=== PATIENT | male | born 1955 | race Caucasian/White ===

== ENCOUNTER 2019-02-11 06:01 | Outpatient (CLI) | payer BC ==
[~2019-02-11] VITALS: Ht 188 cm; Wt 147.9 kg
[2019-02-11] MEDS ORDERED: MULT-1104 PO (11:19)
[2019-02-11] MEDS ORDERED: ZOLP10TA PO (11:19)
[2019-02-11] MEDS ORDERED: RAMI10CA35 PO (11:19)
[2019-02-11] MEDS ORDERED: ASPI-586 PO (11:19)
[2019-02-11] MEDS ORDERED: OMEP20TA7 PO (11:19)
== END 2019-02-11 11:26 | disposition home or self-care (01) ==
LOC: PREOP 06:01
PROVIDERS: ATTEND Surgery
DX: Z01.818 Encounter for other preprocedural examination (principal)

== ENCOUNTER 2019-02-12 10:56 | Day surgery (SDC) | payer BC ==
[~2019-02-12] VITALS: Ht 188 cm; Wt 147.9 kg
[~2019-02-12 10:56] MED LIST: ASPI-586 PO; MULT-1104 PO; OMEP20TA7 PO; RAMI10CA35 PO; ZOLP10TA PO
[2019-02-12] MEDS ORDERED: NS IV 500 ML 500 ML ONE (10:58)
[2019-02-12] MEDS ORDERED: NS IV 500 ML 500 ML IV PRN (11:01)
--- OUTSIDE RECORDS SUMMARY | 2019-02-12 11:12 | XMS REPORT ---
Author Author Michael Cook Organization [facility] Address [address] [place], [place] [id number] Care Team Providers Care Chain Carrier Name Role Phone Michael Cook PCP Unavailable Allergies and Adverse Reactions Name Reaction Notes TETRACYCLINES Plan of Treatment Not available. Medications Active Name Start Date Estimated Completion Date SIG Comments omeprazole 20 mg oral capsule,delayed release(DR/EC) Take one capsule PO BID Aspir-81 81 mg oral tablet,delayed release (DR/EC) take 1 tablet (81 mg) by oral route once daily AndroGel 20.25 mg/1.25 gram (1.62 %) transdermal gel in metered-dose pump apply 20.25 mg by topical route once daily in the morning to 1 upper arm and shoulder fluoxetine 10 mg oral capsule take 1 capsule by oral route As needed zolpidem 10 mg oral tablet take 1 tablet by oral route As needed Problem List Description Status Onset Anxiety Active Fractured bone Active Hypercholesteremia Active Migraine Active Insomnia Active Weight Change Active Drug therapy Active 03/19/2015 Benign prostatic hypertrophy Active 03/19/2015 Nocturia more than twice per night Active 03/19/2015 Spermatocele Active 03/19/2015 Vital Signs Date Time BP-Sys(mm[Hg] BP-Tara(mm[Hg]) HR(bpm) RR(rpm) Temp WT HT HC BMI BSA BMI Percentile O2 Sat(%) 03/19/2015 9:01:00 AM 320 lbs 74 in 41.09 kg/m2 2.75 m2 Social History Name Description Comments Alcohol Use - Rare Caffeine Tobacco Former smoker Stopped smoking in 2010 . Smoked for 20 years History of Procedures Date Ordered Description Order Status 03/19/2015 12:00 AM US EXAM SCROTUM Reviewed 03/19/2015 10:03 AM URINALYSIS AUTO W/O SCOPE Reviewed Results Summary Data and Description Results 03/19/2015 10:03 AM Bilirub Ur Ql Strip -VE Clarity Ur CLEAR Color Ur --- Glucose Ur-sCnc -VE Hgb Ur Ql Strip -VE Ketones Ur Ql Strip -VE Nitrite Ur Ql Strip -VE pH Ur-LsCnc 5.0 Prot Ur Ql Strip -VE Sp Gr Ur Qn 1010 Urobilinogen Ur-mCnc -VE WBC Est Ur Ql Strip -VE History Of Immunizations Not available. History of Past Illness Name Date of Onset Comments Anxiety Hypercholesteremia Fractured bone Migraine Insomnia Weight Change Drug therapy 03/19/2015 Benign prostatic hypertrophy 03/19/2015 Nocturia more than twice per night 03/19/2015 Spermatocele 03/19/2015 Scrotal mass Mar 19 2015 9:27AM Right Spermatocele Worsening Mar 19 2015 9:02AM Nocturia more than twice per night Mar 19 2015 9:02AM Benign prostatic hypertrophy Mar 19 2015 9:02AM Drug therapy Mar 19 2015 9:02AM Payers Insurance Name Company Name Plan Name Plan Number Policy Number Policy Group Number [facility] Date [facility] [id number] N/A [facility] [id number] N/A History of Encounters Visit Date Visit Type Provider 03/19/2015 Office visit Michael Cook MD
--- OUTSIDE RECORDS SUMMARY | 2019-02-12 11:12 | XMS REPORT ---
Author Author Michael Cook Organization [facility] Address [address] [place], [place] [phone] Care Team Providers Care District Court Justice Name Role Phone Michael Cook PCP Unavailable [...] Number Policy Group Number [facility] Date [facility] [id number] N/A [facility] [id number] N/A History of Encounters Visit Date Visit Type Provider 03/19/2015 Office visit Michael Cook MD
--- OUTSIDE RECORDS SUMMARY | 2019-02-12 11:12 | XMS REPORT | Continuity of Care Document ---
Author Organization Unknown Address Unknown Allergies Active Description Code Type Severity Reaction Onset Reported/Identified Relationship to Patient Clinical Status Yes TETRACYCLINE [id number] DRUG N/A N/A Medications There is no data. Problems There is no data. Procedures There is no data. Results There is no data. Encounters ACCT No. Visit Date/Time Discharge Status Pt. Type Provider Facility Loc./Unit Complaint [id number] 03/18/2018 16:10:01 03/18/2018 23:59:59 [facility] Outpatient Kali Andrea [id number] 04/12/2015 22:22:19 04/12/2015 23:59:59 [facility] Outpatient Michael Cook [id number] 04/10/2018 10:37:14 Document Registration
--- OUTSIDE RECORDS SUMMARY | 2019-02-12 11:12 | XMS REPORT ---
Author Author Kali Andrea [facility] Address [address] [place], [place] [phone] Care Team Providers Care Roving Carrier Name Role Phone Kali Andrea PCP Allergies and Adverse Reactions Name Reaction Notes [...] HC BMI BSA BMI Percentile O2 Sat(%) 05/14/2018 11:14:00 AM 120 mmHg 80 mmHg 82 bpm 16 rpm 98.8 F 326.25 lbs 74 in 41.8876 kg/m 2.7797 m 99 % 03/18/2018 3:18:00 PM 134 mmHg 72 mmHg 71 bpm 18 rpm 99 F 334 lbs 74 in 42.88 kg/m2 2.81 m2 98 % 03/18/2018 3:18:00 PM 134 mmHg 72 mmHg 71 bpm 18 rpm 99 F 334 lbs 74 in 42.88 kg/m2 2.81 m2 98 % 03/19/2015 9:01:00 AM 320 lbs 74 in 41.0851 kg/m 2.75 m2 Social History Name Description Comments Alcohol Use - Rare Caffeine Tobacco Former smoker Stopped smoking in 2010 . Smoked for 20 years History of Procedures Date Ordered Description Order Status 03/18/2018 12:00 AM COMPLETE CBC W/AUTO DIFF WBC Reviewed 03/18/2018 12:00 AM METABOLIC PANEL TOTAL CA Reviewed 03/18/2018 12:00 AM ELECTROCARDIOGRAM TRACING Reviewed 03/18/2018 12:00 AM URINALYSIS AUTO W/SCOPE Reviewed 03/19/2015 12:00 AM US EXAM SCROTUM Reviewed Results Summary Date and Description Results 03/18/2018 4:30 PM GLUCOSE 92 SODIUM 139 POTASSIUM 4.6 CHLORIDE 111 CO2 22 BUN 23 CREATININE 1.1 CALCIUM 8.9 AGE 62 GFR NonAA 68 GFR AA 82 eGFR 68 eGFR AA* >60 WBC 6.2 RBC 4.50 HGB 11.4 HCT 36.7 MCV 82 MCH 25.3 MCHC 31.1 RDW SD 44 RDW CV 14.7 MPV 10.0 PLT 164 NRBC# 0.00 NRBC% 0.0 %NEUT 66.0 %LYMP 17.1 %MONO 11.3 %EOS 4.7 %BASO 0.6 #NEUT 4.10 #LYMP 1.06 #MONO 0.70 #EOS 0.29 #BASO 0.04 MANUAL DIFF NOT IND 03/18/2018 4:54 PM COLOR YELLOW APPEARANCE CLEAR SPEC GRAV 1.025 pH 6.0 PROTEIN NEGATIVE GLUCOSE NEGATIVE KETONE NEGATIVE BILIRUBIN NEGATIVE BLOOD NEGATIVE NITRITE NEGATIVE LEUK SCREEN NEGATIVE WBC/HPF RARE RBC/HPF NEGATIVE CASTS/LPF NEGATIVE CRYSTALS NEGATIVE MUCOUS THRDS NEGATIVE BACTERIA NEGATIVE EPITH CELLS FEW SQUAMOUS TRICHOMONAS NEGATIVE YEAST NEGATIVE CULT SET UP? NO History Of Immunizations Not available. History of [...] 9:02AM Drug therapy Mar 19 2015 9:02AM Pre-op exam Mar 18 2018 3:21PM Spermatocele Mar 18 2018 3:21PM Spermatocele May 14 2018 11:16AM Payers Insurance Name Company Name Plan Name Plan Number Policy Number Policy Group Number Start Date [facility] [facility] [place] [id number] N/A [employer] [facility] [place] [id number] N/A History of Encounters Visit Date Visit Type Provider 05/14/2018 Office visit Kali Andrea MD 04/16/2018 Surgery Kali Andrea MD 03/18/2018 Office visit Kali Andrea MD 03/19/2015 Office visit Michael Cook MD
[2019-02-12] MEDS ORDERED: MIDAZOLAM 2 MG/2 ML (VERSED) VIAL IVP ONE (11:15)
[2019-02-12] MEDS ORDERED: fentaNYL INJECTION 100 MCG/2 ML AMP IVP ONE (11:15)
[2019-02-12] MEDS ORDERED: LIDOCAINE JELLY 2% 6 ML SYRINGE MM PRN (11:15)
[2019-02-12 11:16] VITALS: BP 132/59
[2019-02-12] MEDS ORDERED: MIDAZOLAM 2 MG/2 ML (VERSED) VIAL ONE ×4 (11:49)
[2019-02-12] MEDS ORDERED: LIDOCAINE JELLY 2% 6 ML SYRINGE ONE (11:50)
[2019-02-12] MEDS ORDERED: fentaNYL INJECTION 100 MCG/2 ML AMP ONE ×2 (11:50→12:56)
--- NOTE | 2019-02-12 12:01 | Conscious Sedation/ASA ---
Conscious Sedation Pre-Proced Time 11:30 ASA Score 2 For ASA 3 and 4: Consider anesthesia and medical clearance. Also, for patients with a history of failed moderate sedation consider anesthesia. Airway Lungs Heart ASA score ASA 1: a normal healthy patient ASA 2: a patient with a mild systemic disease (mid diabetes, controlled hypertension, obesity ASA 3: a patient with a severe systemic disease that limits activity (angina, COPD, prior Myocardial infarction) ASA 4: a patient with an incapacitating disease that is a constant threat to life (CHF, renal failure) ASA 5: a moribund patient not expected to survive 24 hrs. (ruptured aneurysm) ASA 6: a declared brain- patient whose organs are being harvested. For emergent operations, add the letter E after the classification Mallampati Classification Grade 3 Sedation Plan Analgesia, Amnesia, Plan communicated to team members, Discussed options with patient/fam, Discussed risks with patient/fam The patient is an appropriate candidate to undergo the planned procedure, sedation, and anesthesia. The patient immediately re-assessed prior to indication. USAMA REMY MD Feb 12, 2019 12:01
--- NOTE | 2019-02-12 12:02 | Progress Note-Pre Operative ---
Pre-Operative Progress Note H&P Reviewed The H&P was reviewed, patient examined and no changes noted. Date Seen by Provider: Feb 12, 2019 Time Seen by Provider: 11:30 Date H&P Reviewed: Feb 12, 2019 Time H&P Reviewed: 11:30 Pre-Operative Diagnosis: screening colon USAMA REMY MD Feb 12, 2019 12:02
--- NOTE | 2019-02-12 12:04 | Discharge Inst-Surgical ---
D/C Lap Instructions-SANDRITA Follow Up Activity as tolerated High Fiber Diet 25g or more per day Avoid Alcohol, Caffeine, Spicy [place] and Acid foods. Drink 64 fluid oz or more of fluids per day. Symptoms to Report: Fever over 101 degree F, Nausea/Vomiting If any problems/questions: Contact your physician or go to Emergency Room USAMA REMY MD Feb 12, 2019 12:04
[2019-02-12] MEDS ORDERED: HYDROcodone/APAP 5 MG/325 MG (LORTAB) TAB PO PRN (12:15)
[2019-02-12] MEDS ORDERED: morphine INJ 10 MG/ML 1ML (SYR OR VIAL) IVP PRN ×2 (12:15)
[2019-02-12] MEDS ORDERED: ONDANSETRON 4 MG/2 ML (SDV) Z0FRAN IVP PRN (12:15)
[2019-02-12] MEDS ORDERED: ACETAMINOPHEN 325 MG TABLET PO PRN (12:15)
[2019-02-12 13:00] VITALS: BP_SYST 130; BP_SYST 137; BP_DIAS 62; BP_DIAS 77
--- NOTE | 2019-02-12 13:42 | Progress Note-Post Operative ---
Post-Operative Progess Note Surgeon (s)/Dairy Farmer (s) Surgeon USAMA REMY MD Dairy Farmer: none Pre-Operative Diagnosis screening colon Post-Operative Diagnosis normal colon and rectum Procedure & Operative Findings Date of Procedure 02/12/19 Procedure Performed/Findings colonoscopy Anesthesia Type cs Estimated Blood Loss Estimated blood loss (mL): minimal Specimens/Packing Specimens Removed none USAMA REMY MD Feb 12, 2019 13:42
[2019-02-12 14:30] VITALS: BP 130/62
--- NOTE | 2019-02-12 20:24 | OPERATIVE REPORT ---
DATE OF SERVICE: 02/12/2019 ATTENDING PRIMARY CARE PHYSICIAN: Victorino Moreau DO. PREOPERATIVE DIAGNOSIS: Screening colonoscopy. POSTOPERATIVE DIAGNOSIS: Normal colon and rectum. PROCEDURE PERFORMED: Colonoscopy. SURGEON: Usama Molina MD. ANESTHESIA: Conscious sedation. ESTIMATED BLOOD LOSS: Minimal. FINDINGS: No significant hemorrhoids identified. Prostate gland was palpable and appeared normal. The remainder of the colon and rectum were normal. There were no polyps or any neoplasms identified throughout the colon or rectum. INDICATIONS: The patient is a 63-year-old male in need of a screening colonoscopy. He has not had a colonoscopy up to this point in his life. He reports that he has had some issues with anemia; however, he is status post laparoscopic Gomez-en-Y gastric bypass. He does not report any red blood per rectum nor any dark tarry stools. He also does not report any family history of colon cancer. DESCRIPTION OF PROCEDURE: The patient was brought to the endoscopy suite, laid in the left lateral decubitus position. After adequate IV pain and sedative medications and conscious sedation anesthesia, a digital rectal examination was performed, which did not reveal any significant hemorrhoids. Prostate gland was palpable and appeared normal. The endoscope was then intubated to the anus and rectum was gently insufflated. The endoscope was then advanced to the valves of Whitney in the rectum with no polyps or any neoplasms identified. The endoscope was then advanced to the sigmoid colon where no diverticulosis identified. Endoscope was then advanced to the remainder of the descending, transverse and ascending colon to the cecum. These segments were normal. There were no polyps or any neoplasms or any active bleeding source identified throughout the colon or rectum. The endoscope was then slowly withdrawn while taking a second look and suctioning of residual air with no additional findings. The patient tolerated the procedure well. We will recommend continue conservative management with a high fiber diet with at least 30 grams of fiber per day as well as significant amounts of water daily to promote soft stools daily. He does not need another colonoscopy for another 10 years; however, sooner if he becomes symptomatic. Job ID: [id number] DocumentID: [id number] Dictated Date: 02/12/2019 13:42:23 Rfp Writer Date: 02/12/2019 20:23:40 Dictated By: USAMA MOLINA MD
== END 2019-02-12 13:57 | disposition home or self-care (01) ==
LOC: ENDO 10:56
PROVIDERS: ATTEND Surgery
DX: Z12.11 Encounter for screening for malignant neoplasm of colon (principal); I10 Essential (primary) hypertension; K21.9 Gastro-esophageal reflux disease without esophagitis; E66.01 Morbid (severe) obesity due to excess calories; Z79.899 Other long term (current) drug therapy; Z87.891 Personal history of nicotine dependence; Z68.41 Body mass index [BMI] 40.0-44.9, adult

== ENCOUNTER 2019-02-25 07:39 | Day surgery (SDC) | payer BC ==
[~2019-02-25] VITALS: Ht 188 cm; Wt 144.2 kg
[2019-02-25] VITALS (8 sets, daily range): BP systolic 128–181; BP diastolic 76–101
[2019-02-25] MEDS ORDERED: LIDOCAINE 1% INJ 20 ML 20 ML VIAL ONE (07:40)
[2019-02-25] MEDS ORDERED: NS IV 1000 ML 1,000 ML ONE (07:40)
[2019-02-25] MEDS ORDERED: HEParin (CATH LAB) 2,000 ML IV ONE (07:40)
--- OUTSIDE RECORDS SUMMARY | 2019-02-25 07:45 | XMS REPORT | Continuity of Care Document ---
Author Organization Unknown Address Unknown Allergies Active Description Code Type Severity Reaction Onset Reported/Identified Relationship to Patient Clinical Status Yes TETRACYCLINE [id number] DRUG N/A N/A Medications There is no data. Problems There is no data. Procedures There is no data. Results There is no data. Encounters ACCT No. Visit Date/Time Discharge Status Pt. Type Provider Facility Loc./Unit Complaint [id number] 03/18/2018 16:10:01 03/18/2018 23:59:59 [facility] Outpatient Kali Andrea [id number] 04/12/2015 22:22:19 04/12/2015 23:59:59 [facility] Outpatient Michael Cook [id number] 04/10/2018 10:37:14 Document Registration
[2019-02-25] MEDS ORDERED: NS IV 1000 ML 1,000 ML IV SCH ×2 (08:00→11:09)
[2019-02-25] MEDS ORDERED: FLUO20CA25 PO (08:15)
[2019-02-25] MEDS ORDERED: FERROUS SULFATE 160 MG PO (08:15)
[2019-02-25 08:23] LABS: HEMOGLOBIN 10.6 G/DL (13.3-17.7); MEAN PLATELET VOLUME 10.4 FL (7.4-10.4); RED CELL DISTRIBUTION WIDTH 15.9 % (10.0-14.5); WHITE BLOOD COUNT 6.6 10^3/uL (4.3-11.0)
[2019-02-25 08:32] LABS: PROTHROMBIN TIME PATIENT 13.3 SEC (12.2-14.7)
[2019-02-25 08:39] LABS: ALBUMIN 4.1 GM/DL (3.2-4.5); BILIRUBIN,TOTAL 0.7 MG/DL (0.1-1.0); CREATININE SERUM 1.42 MG/DL (0.60-1.30); POTASSIUM 4.3 MMOL/L (3.6-5.0); TOTAL PROTEIN 7.2 GM/DL (6.4-8.2)
[2019-02-25] MEDS ORDERED: MIDAZOLAM 5 MG/5 ML (VERSED) VIAL ONE (08:43)
[2019-02-25] MEDS ORDERED: fentaNYL INJECTION 100 MCG/2 ML AMP ONE (08:43)
--- NOTE | 2019-02-25 11:11 | Cardiac Procedure Note-CS/ASA ---
Pre-Procedure Note Pre-Op Procedure Note H&P Reviewed The H&P was reviewed, patient examined and no changes noted. Date H&P Reviewed: Feb 25, 2019 Time H&P Reviewed: 09:00 Conscious Sedation Pre-Proced Time 09:00 ASA Score 3 For ASA 3 and 4: Consider anesthesia and medical clearance. Also, for patients with a history of failed moderate sedation consider anesthesia. Airway Lungs Heart ASA score ASA 1: a normal healthy patient ASA 2: a patient with a mild systemic disease (mid diabetes, controlled hypertension, obesity ASA 3: a patient with a severe systemic disease that limits activity (angina, COPD, prior Myocardial infarction) ASA 4: a patient with an incapacitating disease that is a constant threat to life (CHF, renal failure) ASA 5: a moribund patient not expected to survive 24 hrs. (ruptured aneurysm) ASA 6: a declared brain- patient whose organs are being harvested. For emergent operations, add the letter E after the classification Mallampati Classification Grade 3 Sedation Plan Analgesia, Amnesia, Plan communicated to team members, Discussed options with patient/fam, Discussed risks with patient/fam The patient is an appropriate candidate to undergo the planned procedure, sedation, and anesthesia. The patient immediately re-assessed prior to indication. JUAN JOSE ARRINGTON MD FACP FAC CCDS Feb 25, 2019 11:11
[2019-02-25] MEDS ORDERED: PATIENT MAY USE OWN MEDS, ALL PO SCH (11:15)
[2019-02-25] MEDS ORDERED: ATOR40TA70 PO (11:20)
--- NOTE | 2019-02-25 11:23 | Discharge Inst-Post CATH ---
Discharge Inst-CATH/EP Post Cardiac Cath/EP D/C Inst Follow Up/Plan F/u with Dr Wright in 2 weeks ACTIVITY * Go Home directly and rest. * Limit activity of the leg (or wrist if it was used) for 7 days including aerobics, swimming, jogging, bicycling, etc. * Restrict stair-climbing for 7 days if possible, if not, climb up with your n on-cath leg, then bring together on the same step. * Avoid lifting, pushing, pulling or excessive movement of the affected ex tremity for 7 days. * Customary sexual activity may be resumed after 2 days-use caution not to use a position that strains or causes pain to the affected extremity. * No driving for 24 hours. * NO SMOKING. * Avoid straining for bowel movements for 7 days. * Gentle walking on level ground is allowed. * Returning to work will depend on the type of procedure and the results. Your doctor will discuss this with you. CALL YOUR DOCTOR FOR ANY OF THE FOLLOWING: *If bleeding from the puncture site occurs- Apply gentle pressure to site with clean cloth and call your doctor or EMS. * If a knot or lump forms under the skin, increases in size, or causes pain. * If bruising appears to be worsening or moving further down your leg instead of disappearing. * Temperature above 101 F. CARE OF YOUR GROIN INCISION; * Bruising or purple discoloration of the skin near the puncture site is common. * You may shower only, no bathtub bathing for 5 days. Be careful to avoid slipping as your leg may feel stiff. * If a closure device was used on your femoral artery, please see the attached guide regarding care of the device and your leg. * Leave dressing on FOR 24 hours. CARE OF YOUR WRIST INCISION; * Bruising or purple discoloration of the skin near the puncture site is common. * You may shower. * DO NOT submerge wrist. * Leave dressing on FOR 24 hours. JUAN JOSE WRIGHT MD FACP FAC CCDS Feb 25, 2019 11:23
--- NOTE | 2019-02-25 11:23 | Discharge Inst-Cardiology ---
Discharge Inst-Cardiac Discharge Medications New Medications: Atorvastatin Calcium (Atorvastatin Calcium) 40 Mg Tablet 40 MG PO DAILY for 30 Days, #30 TAB 5 Refills Continued Medications: Aspirin (Aspir 81) 81 Mg Tablet.dr 81 MG PO DAILY, TAB [Ferrous [id number]] () 160 MG PO BID Fluoxetine HCl (Fluoxetine HCl) 20 Mg Capsule 20 MG PO DAILY, CAP Multivit-Min/Folic/Vit K/Lycop (Men's 50 Plus Multivitamin Tab) 1 Each Tablet 1 EACH PO DAILY, TAB Omeprazole (Omeprazole) 20 Mg Tablet.dr 20 MG PO BID, TAB Ramipril (Altace) 10 Mg Capsule 10 MG PO BID, CAP Zolpidem Tartrate (Ambien) 10 Mg Tablet 10 MG PO HS PRN for SLEEP, TAB JUAN JOSE ARRINGTON MD FACP FACC CCDS Feb 25, 2019 11:23
--- NOTE | 2019-02-25 12:28 | CARDIAC CATHETERIZATION ---
DATE OF SERVICE: 02/25/2019 CARDIAC CATHETERIZATION HISTORY OF PRESENT ILLNESS: The patient is a 63-year-old gentleman, who has multiple coronary artery disease risk factors, who has had a new onset of exertional shortness of breath and chest tightness with elevated blood pressure. These symptoms were suggestive of new onset of angina. Cardiac catheterization was carried out today after having obtained an informed consent. Vigorous perioperative hydration was carried out prior to the procedure and was continued during and after the procedure. This was because the patient has baseline renal insufficiency and we attempted to reduce risk of contrast nephropathy. He was brought to the cardiac catheterization laboratory in a fasting state. Right groin was prepared and draped in the usual sterile fashion. Lidocaine 1% was used for local anesthesia. Modified Seldinger technique was used to advance a 5-Sudanese sheath in the right femoral artery, 5-Sudanese JL3.5 catheter was used for left coronary angiography. A 5-Sudanese JR4 catheter was used for right coronary angiography. A 5-Sudanese pigtail catheter was used for left heart catheterization and left ventricular angiography. Pigtail was removed. Angiography of the right femoral artery was carried out through the sheath. Mynx was used to achieve hemostasis. He tolerated the procedure well. HEMODYNAMICS: Left ventricular end-diastolic pressure following coronary angiography was 12 mmHg. There was approximately 5-7 mm pressure gradient on pullback across the aortic valve. Ascending aortic pressure was 138/79 with a mean of 104 mmHg. CORONARY ANGIOGRAPHY: Left main coronary artery is free of significant disease. Left anterior descending and left circumflex arteries have mild plaque. 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 The right coronary and left circumflex arteries are codominant. LEFT VENTRICULAR ANGIOGRAPHY: Left ventricular angiography was carried out in the right anterior oblique projection. Global left ventricular systolic function is normal. The ejection fraction is approximately 60%. CONCLUSIONS: 1. Angiographically mild coronary artery disease. 2. Normal global left ventricular systolic function with ejection fraction approximately 60%. 3. Normal left ventricular end-diastolic pressure. DISCUSSION AND RECOMMENDATIONS: Based on the results of the study, it appears appropriate to continue a conservative approach. Risk factor modification has been reviewed. Outpatient followup is advised. Job ID: [id number] DocumentID: [id number] Dictated Date: 02/25/2019 09:38:34 Brazer Assembler Date: 02/25/2019 12:27:02 Dictated By: JUAN JOSE ARRINGTON MD, MA, FACP, FACC, MTDD
== END 2019-02-25 12:55 | disposition home or self-care (01) ==
LOC: CATH 07:39 → SDC 09:53 → CATH 12:55
PROVIDERS: ATTEND Internal Medicine Cardiovascular Disease
DX: I25.10 Atherosclerotic heart disease of native coronary artery without angina pectoris (principal); I10 Essential (primary) hypertension; D64.9 Anemia, unspecified; E66.01 Morbid (severe) obesity due to excess calories; Z68.41 Body mass index [BMI] 40.0-44.9, adult; Z79.82 Long term (current) use of aspirin; Z79.899 Other long term (current) drug therapy; Z87.891 Personal history of nicotine dependence; Z98.84 Bariatric surgery status
CPT/HCPCS: 36415; 80053; 80061; 85027; 85610; 85730; 87081; 93458

== ENCOUNTER 2022-06-06 11:07 | Emergency (ER) | payer MEDICARE, OTHER ==
[~2022-06-06] VITALS: Ht 187.9 cm; Wt 170.1 kg
[~2022-06-06 11:07] MED LIST changes: -HEParin (CATH LAB) 0 ML IV ONE; -LIDOCAINE 1% INJ 30 ML (XYLOCAINE) VIAL ONE; -NS IV 1000 ML 0 ML ONE; -NS IV 1000 ML 1,000 ML IV SCH
[2022-06-06] MEDS ORDERED: NS IV 1000 ML 1,000 ML IV SCH ×2 (11:15→13:45)
--- NOTE | 2022-06-06 11:44 | ED General ---
General Chief Complaint: General Problems/Pain Stated Complaint: RENAL FAILURE Nursing Triage Note: PT TO ED RM 6 BY WC AFTER BEING SENT FROM KINESIOLOGIST. PT WAS SUPPOSE TO HAVE HEART CATH THIS MORNING, BUT CREATINE WAS TOO HIGH FOR CATH. STATES PT HAD ACUTE KIDNEY FAILURE A YEAR AGO. STATES SHE NOTICED SUNDAY THAT HE WAS MORE FATIGUED, CONFUSION, AND SWELLING. Source of Information: Patient Exam Limitations: No Limitations (TONIA PRINCE OBIEE REPORT DEVELOPER) History of Present Illness Date Seen by Provider: Jun 06, 2022 Time Seen by Provider: 11:44 Initial Comments This is a 67 yo male with history of HTN, HLD, GERD, FABIÁN, CAD, who presented to the ER via wheel chair from the heart label remover pre-op area for concerns of elevated creatinine. He was scheduled to have cardiac catheterization with Dr. Wright at 0900 this am. However, his creatinine today was 6.1 and his procedure was cancelled and he was referred to ED for further evaluation. His previous creatinine on 05/26/22 was 1.4, and is his baseline. He reports increased swelling in his bilateral lower extremities over the past week and had taken Lasix 40mg by mouth x 4 days. He had some improvement of swelling but had decreased urine output. Spouse states he had ARF last March 2021 and was transferred to [facility] at that time. Had 7 day hospital stay with supportive care which did not require dialysis. Spouse states he was found to have severe infection with Klebsiella Pneumoniae. Last March he had some visual hallucinations and over the past couple days he has also been having intermittent visual hallucinations. Reports last urination just prior to arrival in label remover. He is alert and oriented today. (TONIA PRINCE OBIEE REPORT DEVELOPER) Allergies and Home Medications Allergies Coded Allergies: No Known Drug Allergies (Unverified , 02/11/19) Patient Home Medication List Home Medication List Reviewed: Yes (TONIA PRINCE OBIEE REPORT DEVELOPER) Aspirin (Aspir 81) 81 Mg Tablet., 81 MG PO DAILY, (Reported) Entered as Reported by: GUSTAVO BELLAMY on 02/11/19 1119 Atorvastatin Calcium (Atorvastatin Calcium) 40 Mg Tablet, 40 MG PO DAILY Prescribed by: JUAN JOSE WRIGHT on 02/25/19 1120 Fluoxetine HCl (Fluoxetine HCl) 20 Mg Capsule, 20 MG PO DAILY, (Reported) Entered as Reported by: MERYL ANAYA on 02/25/19 0815 Losartan Potassium (Losartan Potassium) 100 Mg Tablet, 100 MG PO DAILY, (Reported) Entered as Reported by: POLY PHELAN on 06/06/22 1012 Multivit-Min/Folic/Vit K/Lycop (Men's 50 Plus Multivitamin Tab) 1 Each Tablet, 1 EACH PO DAILY, (Reported) Entered as Reported by: GUSTAVO BELLAMY on 02/11/19 1119 Nebivolol HCl (Nebivolol HCl) 10 Mg Tablet, 10 MG PO DAILY, (Reported) Entered as Reported by: POLY PHELAN on 06/06/22 1012 Omeprazole (Omeprazole) 20 Mg Tablet.dr, 20 MG PO BID, (Reported) Entered as Reported by: GUSTAVO BELLAMY on 02/11/19 1119 Testosterone (Androgel) 20.25 Mg/1.25 Gram (1.62 %) Gel.packet, 1 GM TD EVERY OTHER DAY, (Reported) Entered as Reported by: POLY PHELAN on 06/06/22 1012 Zolpidem Tartrate (Ambien) 10 Mg Tablet, 10 MG PO HS PRN for SLEEP, (Reported) Entered as Reported by: GUSTAVO BELLAMY on 02/11/19 1119 Discontinued Medications Ramipril (Altace) 10 Mg Capsule, 10 MG PO BID, (Reported) Discontinued Reason: No Longer Taking Entered as Reported by: GUSTAVO BELLAMY on 02/11/19 1119 [Ferrous Dypeolj863iq] , 160 MG PO BID, (Reported) Discontinued Reason: No Longer Taking Entered as Reported by: MERYL ANAYA on 02/25/19 0815 Review of Systems Review of Systems Constitutional: see HPI EENTM: see HPI Respiratory: cough, dyspnea on exertion, short of breath Cardiovascular: no symptoms reported; No chest pain Gastrointestinal: no symptoms reported Genitourinary: decreased output; No hematuria; hesitancy; No pain Musculoskeletal: no symptoms reported Skin: other Psychiatric/Neurological: No Symptoms Reported Hematologic/Lymphatic: No Symptoms Reported Immunological/Allergic: no symptoms reported (TONIA PRINCE APRN) Past Dylzujq-Sawvpb-Efyhtb Hx Patient Social History Tobacco Use?: No Use of E-Cig and/or Vaping dev: No Substance use?: No Alcohol Use?: Yes Alcohol Frequency: Once in a while Pt feels they are or have been: No (TONIA PRINCE APRN) Seasonal Allergies Seasonal Allergies: No (TONIA PRINCE APRN) Past Medical History Surgeries: Yes (bilat knee scopes, right TKR, R ing hernia, uvulectomy, gastric sleeve) Joint Replacement, Orthopedic Respiratory: No Currently Using CPAP: No Currently Using BIPAP: No Cardiac: Yes High Cholesterol, Hypertension Neurological: No Genitourinary: No Gastrointestinal: Yes Gastroesophageal Reflux Musculoskeletal: Yes Arthritis Endocrine: No HEENT: No Cancer: No Psychosocial: No Integumentary: No Blood Disorders: No (TONIA PRINCE APRN) Physical Exam Vital Signs Vital Signs - First Documented 06/06/22 11:18 Pulse 57 Resp 10 B/P (MAP) 112/46 (68) Pulse Ox 96 O2 Delivery Room Air (ELDON ALLEN MD) Vital Signs Capillary Refill : (TONIA PRINCE APRN) Height, Weight, BMI Height: 6'2.00" Weight: 318lbs. 0.0oz. 144.096237wu; 48.00 BMI Method: General Appearance: No Apparent Distress, WD/WN Eyes: Bilateral Eye Normal Inspection, Bilateral Eye PERRL, Bilateral Eye EOMI HEENT: PERRL/EOMI, Normal ENT Inspection, Pharynx Normal, Moist Mucous Membranes Neck: Full Range of Motion, Normal Inspection, Supple Respiratory: Lungs Clear, Normal Breath Sounds, No Accessory Muscle Use, No Respiratory Distress Cardiovascular: Regular Rate, Rhythm, Normal Peripheral Pulses, Systolic Murmur Gastrointestinal: Normal Bowel Sounds, No Pulsatile Mass, Non Tender, Soft Back: Normal Inspection Extremity: Normal Capillary Refill, Normal Inspection, Normal Range of Motion Neurologic/Psychiatric: Alert, Oriented x3, No Motor/Sensory Deficits, Normal Mood/Affect, master deputy sheriff court security II-XII Norm as Tested Skin: Normal Color, Warm/Dry (TONIA PRINCE APRN) Focused Exam Lactate Level 06/06/22 12:00: Lactic Acid Level 0.57 (ELDON ALLEN MD) Lactic Acid Level Laboratory Tests Test 06/06/22 12:00 Lactic Acid Level 0.57 MMOL/L (0.50-2.00) (ELDON ALLEN MD) Progress/Results/Core Measures Suspected Sepsis SIRS Temperature: Pulse: 57 Respiratory Rate: 10 Blood Pressure 112 /46 Mean: 68 06/06/22 12:00: Lactic Acid Level 0.57 06/06/22 12:00: Lactic Acid Level 0.57 06/06/22 12:00: Lactic Acid Level 0.57 06/06/22 12:00: Lactic Acid Level 0.57 06/06/22 12:00: Lactic Acid Level 0.57 (TONIA PRINCE APRN) Results/Orders Lab Results Laboratory Tests Test 06/06/22 12:00 06/06/22 13:51 Range/Units Lactic Acid Level 0.57 0.50-2.00 MMOL/L Urine Color YELLOW Urine Clarity CLEAR Urine pH 5.5 5-9 Urine Specific [place] 1.025 H 1.016-1.022 Urine Protein NEGATIVE NEGATIVE Urine Glucose (UA) NEGATIVE NEGATIVE Urine Ketones NEGATIVE NEGATIVE Urine Nitrite NEGATIVE NEGATIVE Urine Bilirubin NEGATIVE NEGATIVE Urine Urobilinogen 0.2 < = 1.0 MG/DL Urine Leukocyte Esterase NEGATIVE NEGATIVE Urine RBC (Auto) NEGATIVE NEGATIVE Urine RBC NONE /HPF Urine WBC NONE /HPF Urine Squamous Epithelial Cells RARE /HPF Urine Crystals NONE /LPF Urine Bacteria NEGATIVE /HPF Urine Casts NONE /LPF Urine Mucus NEGATIVE /LPF Urine Culture Indicated CULTURE PENDING (ELDON ALLEN MD) My Orders Orders - ELDON ALLEN MD Ed Iv/Invasive Line Start (06/06/22 11:15) Ns Iv 1000 Ml (Sodium Chloride 0.9%) (06/06/22 11:15) Ua Culture If Indicated (06/06/22 11:15) (ELDON ALLEN MD) Vital Signs/I&O 06/06/22 06/06/22 11:18 15:27 Pulse 57 53 Resp 10 18 B/P (MAP) 112/46 (68) 128/67 Pulse Ox 96 97 O2 Delivery Room Air (ELDON ALLEN MD) Vital Signs/I&O Capillary Refill : (TONIA PRINCE APRN) Blood Pressure Mean: 68 Progress Note : Progress Note Patient examined and no acute distress. He is awake, alert, and able to help provide good history. Spouse is at bedside who is former nurse and is also able to provide good history. He has no known nephrotoxic drugs other than his use of Lasix past week. Will occasionally take Advil a couple times per week. His baseline creatinine is 1.4. Orders given for liter of NS bolus as he had 2 consecutive BP reading of SBP 88. Has 297ml on bladder scan. Unable to void at this time. Added sepsis workup due to low BP and ARF. Spouse reports heart cath scheduled today was to evaluate his stable angina and shortness of air. After 1st liter his SBP remained above 110. He feels need to void but has yet to give sample. Would like to hold on catheter placement at this time. Has no elevation in WBC, has history of FABIÁN and Hgb-9.0 today. No reports of black, bloody, or tarry stools. Lactic normal 0.5. 1230: Discussed with Dr. Zepeda, hospitalist. As this is his 2nd event with ARF with unknown cause, would like transfer to nephrology capable facility. 1259: Called [facility] for transfer per patient request, this is where he receives much of his past medical care. They are at capacity at this time. 1300: Called [facility], discussed with Dr. Cast. Accepted transfer to medical unit. Family updated with plan of care, they are agreeable with plan. 2nd liter of NS ordered via gravity. 1351: Urine specimen collected, neg for UTI, neg blood, neg protein. (TONIA PRINCE OBIEE REPORT DEVELOPER) Diagnostic Imaging Diagonstic Imaging: Xray Plain Films/CT/US/NM/MRI: chest Comments [facility], [place] NAME: BOOKEROPAL R [facility] REC#: [id number] PT STATUS: REG ER : 1955 PHYSICIAN: TONIA PRINCE OBIEE REPORT DEVELOPER ADMIT DATE: 06/06/22/ER Draft Date of Exam:06/06/22 CHEST 1 VIEW, AP/PA ONLY INDICATION: Sepsis and renal failure. Frontal chest obtained at 12:18 p.m. There is cardiomegaly. Mediastinal silhouette is unremarkable. Lungs are clear. There is no pneumothorax or pleural fluid. IMPRESSION: Cardiomegaly. No acute process in the chest. Dictated on workstation # [id number] Dict: 06/06/22 1225 Trans: 06/06/22 1226 [id number] Interpreted by: CEM KELLY MD Electronically signed by: Reviewed: Reviewed by Me (TONIA PRINCE APRN) Departure Impression Primary Impression: Acute renal failure (ARF) Disposition: XF SHT-TRM HOSP Condition: Stable Transfer Transfer Reason: Exceeds level of care Time Spoke to Accepting Phy: 13:[address] Cast, Hospitalist with [facility] accepted transfer. Transfer Time: 14:00 Transfer Facility: [facility] Method of Transfer: EMS (TONIA PRINCE APRN) Departure-Patient Inst. Referrals: RUIZ FRAGA DO (PCP/Family) Primary Care Physician ATTENDING PHYSICIAN NOTE: I was physically present as attending physician in the emergency department during the care of this patient. I received report from nursing staff and placed initial orders. Tonia Prince NP assumed care from there. I was not otherwise directly involved in the decision making or delivery of care for this patient. (ELDON ALLEN MD) TONIA PRINCE APRN Jun 06, 2022 11:44 ELDON ALLEN MD Jun 06, 2022 19:08
--- NOTE | 2022-06-06 12:27 | Diagnostic Imaging Report ---
INDICATION: Sepsis and renal failure. Frontal chest obtained at 12:18 p.m. There is cardiomegaly. Mediastinal silhouette is unremarkable. Lungs are clear. There is no pneumothorax or pleural fluid. IMPRESSION: Cardiomegaly. No acute process in the chest. Dictated by: Dictated on workstation # [id number]
[2022-06-06] MEDS ORDERED: NS IV 1000 ML 1,000 ML ONE (13:37)
[2022-06-06 13:56] LABS: BILIRUBIN,URINE NEGATIVE (NEGATIVE); CLARITY,URINE CLEAR; COLOR,URINE YELLOW; GLUCOSE, URINE (UA) NEGATIVE (NEGATIVE); KETONES,URINE NEGATIVE (NEGATIVE); LEUKOCYTE ESTERASE ,URINE NEGATIVE (NEGATIVE); NITRITE,URINE NEGATIVE (NEGATIVE); PH,URINE 5.5 (5-9); PROTEIN,URINE NEGATIVE (NEGATIVE)
[2022-06-06 14:08] LABS: BACTERIA,URINE NEGATIVE /HPF; SQUAMOUS EPITHELIAL CELL,UR RARE /HPF
[2022-06-06 15:27] VITALS: BP 128/67
== END 2022-06-06 15:45 | disposition short-term general hospital (02) ==
LOC: EDUNIT# 11:07 → ER 11:09
DX: N17.9 Acute kidney failure, unspecified (principal)
CPT/HCPCS: 71045; 81000; 83605; 87040; 87088; 96360; 96361

== ENCOUNTER → 2022-06-06 | Day surgery (SDC) | payer MEDICARE, OTHER ==
[~2022-06-06] VITALS: Ht 188 cm; Wt 176.5 kg
[~2022-06-06] MED LIST changes: +ATOR40TA70 PO; +FERROUS SULFATE 160 MG PO; +FLUO20CA48 PO; +HEParin (CATH LAB) 0 ML IV ONE; +LIDOCAINE 1% INJ 30 ML (XYLOCAINE) VIAL ONE; +LOSA100T57 PO; +NEBI10TA11 PO; +NS IV 1000 ML 0 ML ONE; +NS IV 1000 ML 1,000 ML IV SCH; +OMEP20TA56 PO; -OMEP20TA7 PO; +TEST1.252 TD
[2022-06-06 09:53] VITALS: BP 93/53
[2022-06-06 09:56] LABS: HEMATOCRIT 30 % (40-54); MEAN CORPUSCULAR HEMOGLOBIN 25 pg (25-34); MEAN CORPUSCULAR HGB CONC 30 g/dL (32-36); MEAN CORPUSCULAR VOLUME 83 fL (80-99); MEAN PLATELET VOLUME 10.9 fL (9.0-12.2); PLATELET COUNT 134 10^3/uL (130-400); WHITE BLOOD COUNT 7.6 10^3/uL (4.3-11.0)
[2022-06-06 10:17] LABS: INR 1.2 (0.8-1.4); PROTHROMBIN TIME PATIENT 15.3 SEC (12.2-14.7)
[2022-06-06 10:24] LABS: ALBUMIN 3.8 GM/DL (3.2-4.5); BILIRUBIN,TOTAL 0.4 MG/DL (0.1-1.0); CALCIUM 8.5 MG/DL (8.5-10.1); CREATININE SERUM 6.12 MG/DL (0.60-1.30); POTASSIUM 4.4 MMOL/L (3.6-5.0); TOTAL PROTEIN 6.8 GM/DL (6.4-8.2)
[2022-06-06 11:27] LABS: CREATININE SERUM 5.84 MG/DL (0.60-1.30)
== END ==
LOC: CATH 09:03
PROVIDERS: ATTEND Internal Medicine Cardiovascular Disease
DX: I25.10 Atherosclerotic heart disease of native coronary artery without angina pectoris (principal); D64.9 Anemia, unspecified; E66.9 Obesity, unspecified; Z68.42 Body mass index [BMI] 45.0-49.9, adult; I77.9 Disorder of arteries and arterioles, unspecified; D69.6 Thrombocytopenia, unspecified; Z79.899 Other long term (current) drug therapy; I10 Essential (primary) hypertension
CPT/HCPCS: 36415; 80053; 80061; 82565; 85027; 85610; 85730; 87081; 93005

== ENCOUNTER → 2022-07-11 | Outpatient (CLI) | payer MEDICARE, OTHER | LOC: CARD 09:40 | PROVIDERS: ATTEND Internal Medicine Cardiovascular Disease | DX: R01.1 Cardiac murmur, unspecified (principal) | CPT/HCPCS: 93306 ==

== ENCOUNTER → 2022-08-05 | Outpatient (CLI) | payer MEDICARE, OTHER ==
[2022-08-05 14:33] LABS: ABSOLUTE RETIC # 76 10e9/uL (24-90)
[2022-08-05 15:01] LABS: ELLIPT/OVALOCYTES MARKED; EOSINOPHILS % (MANUAL) 9 %; LYMPHOCYTES % (MANUAL) 9 %; MONOCYTES % (MANUAL) 17 %; NEUTROPHILS % (MANUAL) 65 %; POLYCHROMASIA MODERATE; TARGET CELLS MODERATE
[2022-08-05 15:02] LABS: ACANTHOCYTES SLIGHT; BURR CELLS MODERATE
== END ==
LOC: LABNPT 14:22
PROVIDERS: ATTEND Nurse Practitioner Family
DX: D64.9 Anemia, unspecified (principal)
CPT/HCPCS: 85007; 85045; 85055

== ENCOUNTER 2022-09-14 10:49 | Outpatient (RCR) | payer MEDICARE, OTHER ==
[2022-09-07 11:25] VITALS: BP 103/63
[2022-09-07] MEDS: FERRIC CARBOXYMALTOSE INJ 750 MG in NS (IVPB) 250 ML IV SCH (11:42)
[~2022-09-14] VITALS: Ht 187.9 cm; Wt 168.0 kg
[2022-09-14 10:48] VITALS: BP 139/80
[~2022-09-14 10:49] MED LIST changes: +ACETAMINOPHEN 500 MG TAB (TYLENOL) PO PRN; +diphenhydrAMINE 25 MG TAB (BENADRYL) PO PRN
[2022-09-14] MEDS: FERRIC CARBOXYMALTOSE INJ 750 MG in NS (IVPB) 250 ML IV SCH (11:21)
== END 2022-10-03 | disposition home or self-care (01) ==
LOC: SDC 10:49
PROVIDERS: ATTEND Internal Medicine Nephrology
DX: D50.8 Other iron deficiency anemias (principal); N17.9 Acute kidney failure, unspecified; D64.9 Anemia, unspecified
CPT/HCPCS: 96365